=== PATIENT | female | born 2000 | race Caucasian/White ===

== ENCOUNTER 2021-07-03 03:17 | Inpatient (IN) | payer MEDICAID ==
[~2021-07-03] VITALS: Ht 165.1 cm; Wt 59.0 kg
[2021-07-03] MEDS ORDERED: KETOROLAC 30MG/ML VIAL IV STA (03:35)
[2021-07-03] MEDS ORDERED: ONDANSETRON HCL 4MG/2ML INJ IV STA (03:35)
[2021-07-03] MEDS ORDERED: SODIUM CHLORIDE 0.9% 1,000 ML IV ONE (03:45)
[2021-07-03 04:32] LABS: HEMATOCRIT. 40.3 % (36.0-48.0); HEMOGLOBIN. 13.7 g/dL (12.0-16.0); MEAN CORPUSCULAR VOLUME 91.3 fL (81.0-99.0); MEAN PLATELET VOLUME 8.6 fl (7.4-10.4); PLATELET 316 x1000/uL (130-400); RED BLOOD CELL COUNT 4.42 mill/uL (4.2-5.4); RED CELL DISTRIBUTION WIDTH 12.6 % (11.6-14.6)
[2021-07-03 04:34] LABS: CLARITY URINE CLOUDY (CLEAR); COLOR URINE YELLOW (YELLOW); KETONES URINE 4+ (NEGATIVE); LEUKOCYTE ESTERASE URINE 2+ (NEGATIVE); NITRITE URINE NEGATIVE (NEGATIVE); OCCULT BLOOD URINE 1+ (NEGATIVE); PROTEIN URINE 1+ (NEGATIVE); SPECIFIC GRAVITY URINE 1.021 (1.005-1.030); UROBILINOGEN URINE 0.2 E.U./dL (0.2-1.0)
[2021-07-03 04:44] LABS: *AMPHETAMINES SCREEN URINE NEGATIVE (NEGATIVE); *BARBITURATES SCREEN URINE NEGATIVE (NEGATIVE); *BENZODIAZEPINES SCREEN URINE NEGATIVE (NEGATIVE); CHLORIDE 107 mEq/L (98-107)
[2021-07-03 04:45] LABS: CANNABINOID URINE SCREEN NEGATIVE (NEGATIVE); HCG SCREEN NEGATIVE; METHADONE URINE SCREEN NEGATIVE (NEGATIVE); OPIATES URINE SCREEN NEGATIVE (NEGATIVE); PHENCYCLIDINE URINE SCREEN NEGATIVE (NEGATIVE)
[2021-07-03 04:49] LABS: *COCAINE SCREEN URINE PRESUMTIVE POSITIVE (NEGATIVE); ETHANOL BLOOD < 10 mg/dL
[2021-07-03] MEDS ORDERED: CEFTRIAXONE 1 G PREMIX 50 ML IV NR (05:30)
[2021-07-03] MEDS: MORPHINE SULFATE 4 MG/ML CPJ (NOT FOR IM USE) IV NR ×2 (05:34→07:07)
[2021-07-03] MEDS: ONDANSETRON HCL 4MG/2ML INJ IV NR ×2 (05:35→07:08)
[2021-07-03 05:44] LABS: PLATELET ESTIMATE NORMAL
[2021-07-03] MEDS ORDERED: HYDROCODONE/ACETAMINOPHEN 10/325MG TABLET PO ONE (08:45)
[2021-07-03] MEDS ORDERED: CEFTRIAXONE 1 G PREMIX 50 ML IV SCH (08:45)
[2021-07-03] MEDS ORDERED: KETOROLAC 30MG/ML VIAL IV PRN (08:45)
[2021-07-03 09:00] VITALS: BP 101/58
[2021-07-03 12:00] VITALS: BP 105/60
[2021-07-03] MEDS ORDERED: ESCI10TA PO (12:40)
[2021-07-03] MEDS ORDERED: FLUT12AE3 INH (12:42)
[2021-07-03 12:54] VITALS: BP 101/58
[2021-07-03] MEDS: ONDANSETRON HCL 4MG/2ML INJ IV PRN ×2 (13:11→18:44)
[2021-07-03 16:00] VITALS: BP 107/59
[2021-07-03] MEDS: FAMOTIDINE 20MG TABLET PO SCH (18:40)
[2021-07-03] MEDS ORDERED: ACETAMINOPHEN 325MG TABLET PO PRN (19:00)
[2021-07-03] MEDS ORDERED: NON FORMULARY PATIENT HOME MED XX SCH (19:30)
[2021-07-03] MEDS ORDERED: HYDROCODONE/ACETAMINOPHEN 5/325MG TABLET PO SCH (20:00)
[2021-07-03 20:44] VITALS: BP 100/50
[2021-07-03] MEDS ORDERED: NALOXONE HCL 0.4MG/ML VIAL IV PRN (21:00)
[2021-07-04] VITALS: BP 97/44
[2021-07-04 04:00] VITALS: BP 103/62
[2021-07-04] MEDS ORDERED: CEFTRIAXONE 1,000 MG in DEXTROSE 5% WATER 50 ML IV SCH ×2 (05:00→06:00)
[2021-07-04] MEDS ORDERED: MAGNESIUM/ALUMINUM HYDROXIDE/SIMETHICONE 30ML UDC PO PRN (06:00)
[2021-07-04 06:07] LABS: BASOPHILS % 0.4 % (0.0-2.0); EOSINOPHILS % 2.9 % (0.0-5.0); HEMATOCRIT. 32.2 % (36.0-48.0); HEMOGLOBIN. 11.1 g/dL (12.0-16.0); LYMPHOCYTES % 34.2 % (20.0-50.0); MEAN CORPUSCULAR HEMOGLOBIN 31.3 pg (28.0-32.0); MEAN CORPUSCULAR VOLUME 90.8 fL (81.0-99.0); MEAN PLATELET VOLUME 8.8 fl (7.4-10.4); MONOCYTES % 10.5 % (2.0-8.0); PLATELET 223 x1000/uL (130-400); RED BLOOD CELL COUNT 3.55 mill/uL (4.2-5.4); RED CELL DISTRIBUTION WIDTH 12.7 % (11.6-14.6)
[2021-07-04 06:15] LABS: CHLORIDE 114 mEq/L (98-107)
[2021-07-04 08:00] VITALS: BP 103/65
[2021-07-04] MEDS: FAMOTIDINE 20MG TABLET PO SCH (10:43)
[2021-07-04 12:00] VITALS: BP 95/58
[2021-07-04] MEDS ORDERED: LACTULOSE 20G/30ML UDC PO NR (13:00)
[2021-07-04] MEDS: ONDANSETRON HCL 4MG/2ML INJ IV PRN (13:44)
[2021-07-04] MEDS ORDERED: LEVO500T89 MT (15:48)
[2021-07-04 17:30] VITALS: BP 105/52
== END 2021-07-04 19:40 | disposition home or self-care (01) | DRG 720 ==
LOC: ER 03:17 → 8WST 05:21 → ENRESERV 07:22
PROVIDERS: ADMIT Internal Medicine; ATTEND Internal Medicine
DX: A41.9 Sepsis, unspecified organism (principal); N12 Tubulo-interstitial nephritis, not specified as acute or chronic; F14.90 Cocaine use, unspecified, uncomplicated; F20.9 Schizophrenia, unspecified; J45.909 Unspecified asthma, uncomplicated; F17.200 Nicotine dependence, unspecified, uncomplicated; F32.A Depression, unspecified; F41.9 Anxiety disorder, unspecified; Z88.8 Allergy status to other drugs, medicaments and biological substances; Z71.51 Drug abuse counseling and surveillance of drug abuser
CPT/HCPCS: 36415; 74176; 76705; 80048; 80053; 80305; 80320; 81003; 83605; 84703; 85025; 87077; 87186; 99291; J0696; J1885; J2270; J2405; J7030; J7060; G0480

== ENCOUNTER 2021-12-31 22:25 | Emergency (ER) | payer MEDICAID ==
[~2021-12-31] VITALS: Ht 167.6 cm; Wt 60.0 kg
[~2021-12-31 22:25] MED LIST: ESCI10TA PO; FLUT12AE3 INH; LEVO500T90 MT
[2021-12-31 22:31] VITALS: BP 129/89
[2021-12-31] MEDS ORDERED: LORAZEPAM 1MG TABLET PO ONE (23:00)
[2022-01-01] MEDS ORDERED: LORA-250 MT (00:42)
== END 2022-01-01 01:10 | disposition home or self-care (01) ==
LOC: ER 22:25
DX: F41.9 Anxiety disorder, unspecified (principal); F45.8 Other somatoform disorders; R00.2 Palpitations; R06.09 Other forms of dyspnea; F32.A Depression, unspecified; F20.9 Schizophrenia, unspecified; J45.909 Unspecified asthma, uncomplicated; Z88.8 Allergy status to other drugs, medicaments and biological substances
CPT/HCPCS: 82962; 93005; 99283